=== PATIENT | female | born 1950 | race Caucasian/White ===

== ENCOUNTER → 2019-02-20 17:56 | Outpatient (CLI) | payer MEDICARE, SELFPAY | PROVIDERS: Visit Provider Physician Assistant | DX: N30.00 Acute cystitis without hematuria (principal) | CPT/HCPCS: 87077; 87086; 87186 ==

== ENCOUNTER → 2019-03-04 13:50 | Outpatient (CLI) | payer MEDICARE, SELFPAY | PROVIDERS: Visit Provider Nurse Practitioner | DX: R30.0 Dysuria (principal) | CPT/HCPCS: 87086 ==

== ENCOUNTER → 2022-01-26 11:08 | Outpatient (CLI) | payer MEDICARE, SELFPAY | PROVIDERS: Visit Provider Registered Nurse | DX: N39.0 Urinary tract infection, site not specified (principal) | CPT/HCPCS: 87077; 87086 ==

== ENCOUNTER → 2023-10-24 15:51 | Outpatient (CLI) | payer MEDICARE, SELFPAY ==
[2023-10-24 16:51] LABS: Influenza A - CEPHEID Flu A NEGATIVE (NEGATIVE); Influenza B - CEPHEID Flu B NEGATIVE (NEGATIVE); Respiratory Syncytial Virus Negative (Negative)
[2023-10-24 17:02] LABS: COVID-19 CEPHEID 4-PLEX PCR Negative (Negative)
== END ==
PROVIDERS: Visit Provider Nurse Practitioner Family
DX: R05.1 Acute cough (principal); J02.9 Acute pharyngitis, unspecified
CPT/HCPCS: 0241U; 87070

== ENCOUNTER → 2023-10-24 16:15 | Outpatient (CLI) | payer MEDICARE, SELFPAY ==
--- NOTE | 2023-10-24 16:17 | DI.RAD.S_ITS ---
PROCEDURE: XR CHEST 2V INDICATIONS: Cough TECHNIQUE: 2 views of the chest were acquired. COMPARISON: None. FINDINGS: Surgical changes and devices: None. Lungs and pleura: Lungs are clear. No pleural effusions or pneumothorax. Mediastinum: Mediastinal contours are normal. Heart size is normal. Bones and chest wall: No suspicious bony abnormalities. Soft tissues appear unremarkable. IMPRESSION: No acute cardiopulmonary abnormality is seen. No focal consolidation. Dictated by: Liam Sánchez M.D. on 10/25/2023 at 11:28 Approved by: Liam Sánchez M.D. on 10/25/2023 at 11:29
== END ==
PROVIDERS: Referring Provider Nurse Practitioner Family; Visit Provider Nurse Practitioner Family
DX: J02.9 Acute pharyngitis, unspecified (principal); R05.1 Acute cough
CPT/HCPCS: 0241U; 71046; 87070; 87147

== ENCOUNTER 2023-10-30 13:51 | Emergency (ER) | payer MEDICARE, SELFPAY ==
[2023-10-30 13:55] VITALS: BP 123/68; PULSE 70; RESP 18; TEMP 37; O2SAT 97; BMI 22.8
--- NOTE | 2023-10-30 14:17 | ED.URI ---
HPI - URI/Sore Throat <Manoj Pascal PA-C - Last Filed: 10/30/23 16:02> General Chief Complaint: Upper Respiratory Symptoms Stated Complaint: Coughing, chest congestion Time Seen by Provider: 10/30/23 14:14 Source: patient Mode of arrival: Ambulatory History of Present Illness HPI Narrative: This is a 73-year-old female presents to the emergency department due to a continued cough for the last 2 weeks. She states that she was seen in [facility] or C received a prescription for azithromycin. She was then seen in the walk-in clinic about a week ago and given a prescription for Keflex after having any throat culture come back positive. She reports significant cough, denies any shortness of breath, chest pain, fevers, or any other concerning signs or symptoms. Related Data Home Medications Medication Instructions Recorded Confirmed alprazolam PO 02/20/19 10/24/23 cholecalciferol (vitamin D3) 25 1,000 unit PO DAILY 02/20/19 10/24/23 mcg (1,000 unit) capsule levothyroxine 150 mcg capsule 150 mcg PO DAILY 02/20/19 10/24/23 spironolactone 100 mg tablet 150 mg PO QAM 02/20/19 10/24/23 alprazolam 0.5 mg tablet mg PO 10/24/23 10/24/23 bupropion HCl 150 mg 24 hr tablet, 150 mg PO QAM 10/24/23 10/24/23 extended release erythromycin 5 mg/gram (0.5 %) eye EYE-BOTH 10/24/23 10/24/23 ointment estradiol 0.1 mg/24 hr semiweekly 1 patch transdermal 2XW 10/24/23 10/24/23 transdermal patch hydrochlorothiazide 25 mg tablet 25 mg PO DAILY 10/24/23 10/24/23 levothyroxine 125 mcg tablet 125 mcg PO DAILY 10/24/23 10/24/23 mirabegron 50 mg tablet,extended 50 mg PO DAILY 10/24/23 10/24/23 release 24 hr (Myrbetriq) sertraline 100 mg tablet mg PO 10/24/23 10/24/23 sertraline 25 mg tablet 25 mg PO DAILY 10/24/23 10/24/23 tretinoin 0.05 % topical cream 1 applic topical ONCE PM 10/24/23 10/24/23 Previous Rx's Medication Instructions Recorded benzonatate 200 mg capsule 200 mg PO BID PRN cough #28 caps 10/24/23 cephalexin 500 mg capsule 500 mg PO BID 10 days #20 caps 10/27/23 Allergies Allergy/AdvReac Type Severity Reaction Status Date / Time Latex, Natural Rubber Allergy Intermediate Rash Verified 10/30/23 14:01 Penicillins Allergy Intermediate hives Verified 10/30/23 14:01 Sulfa (Sulfonamide Allergy Intermediate hives. Verified 10/30/23 14:01 Antibiotics) Review of Systems <Manoj Pascal PA-C - Last Filed: 10/30/23 16:02> Review of Systems Narrative: GENERAL: Denies chills, fatigue, malaise, fever, sweats. HEENT: Denies sinus pain, ear pain, sore throat, difficulty swallowing, dizziness. RESPIRATORY: Reports cough cough, denies wheezing, hemoptysis, sputum. CARDIOVASCULAR: Denies chest pain, palpitations, orthopnea, edema, GASTROINTESTINAL: Denies nausea, vomiting, abdominal pain, diarrhea, constipation, melena. : Denies dysuria, frequency, incontinence, hematuria, urinary retention. MUSCULOSKELETAL: denies weakness, joint pain, or bony pain SKIN: Denies rash, skin lesions, or other NEUROLOGIC: Denies weakness, headache, numbness, change in speech, confusion, seizures, incoordination. PSYCHIATRIC: No concerning psychosocial issues. 12 point review of systems is negative except for those stated above Patient History <MARYANA Elizabeth Last Filed: 10/30/23 16:02> Social History Smoking Status: Never smoker Smoking Status: Never smoker alcohol intake frequency: holidays/special occasions only Substance Use Type: does not use Exam <Manoj Pascal PA-C - Last Filed: 10/30/23 16:02> Narrative Exam Narrative: GENERAL: Well-developed patient, in mild distress. HEAD: Atraumatic. Normocephalic. EYES: Pupils equal round and reactive. Extraocular motions intact. No scleral icterus. No injection or drainage. ENT: Nose without bleeding, purulent drainage. Throat without erythema, tonsillar hypertrophy or exudate. Airway patent. NECK: Trachea midline. Non tender EXTREMITIES: No edema or joint tenderness. NEURO: AOx3. SKIN: No rash or erythema of visible areas CARDIOVASCULAR: Regular rate and rhythm without murmurs, gallops, or rubs. RESPIRATORY: Coarse breath sounds bilaterally BACK: Nontender without deformity or crepitance. No flank tenderness. Initial Vital Signs Initial Vital Signs: Vital Signs Temperature 98.6 F 10/30/23 13:55 Pulse Rate 70 10/30/23 13:55 Respiratory Rate 18 10/30/23 13:55 Blood Pressure 123/68 10/30/23 13:55 Pulse Oximetry 97 10/30/23 13:55 Oxygen Delivery Method Room Air 10/30/23 13:55 <Maricruz Ortega MD - Last Filed: 10/30/23 16:44> Initial Vital Signs Initial Vital Signs: Vital Signs Temperature 98.6 F 10/30/23 13:55 Pulse Rate 70 10/30/23 13:55 Respiratory Rate 18 10/30/23 13:55 Blood Pressure 123/68 10/30/23 13:55 Pulse Oximetry 97 10/30/23 13:55 Oxygen Delivery Method Room Air 10/30/23 13:55 Course <Manoj Pascal PA-C - Last Filed: 10/30/23 16:02> Orders Ordered: ED Orders 10/30/23 14:33 CXR [XR chest 2V] Stat 10/30/23 14:38 Respiratory Panel (Film Array) Stat Vital Signs Vital signs: Vital Signs - 8 hr 10/30/23 13:55 10/30/23 16:10 Temperature 98.6 F Pulse Rate 70 66 Respiratory Rate 18 20 Blood Pressure 123/68 125/62 Pulse Oximetry 97 96 Oxygen Delivery Method Room Air Room Air <Maricruz Ortega MD - Last Filed: 10/30/23 16:44> Orders Ordered: ED Orders 10/30/23 14:33 CXR [XR chest 2V] Stat 10/30/23 14:38 Respiratory Panel (Film Array) Stat Vital Signs Vital signs: Vital Signs - 8 hr 10/30/23 13:55 10/30/23 16:10 Temperature 98.6 F Pulse Rate 70 66 Respiratory Rate 18 20 Blood Pressure 123/68 125/62 Pulse Oximetry 97 96 Oxygen Delivery Method Room Air Room Air MDM - URI/Sore Throat <MARYANA Elizabeth Last Filed: 10/30/23 16:02> Lab Data Labs: Lab Results 10/30/23 Range/Units 14:38 Chlamy pneumoniae PCR Not detected (Not Detect) Adenovirus (PCR) Not detected (Not Detect) B.parapertussis DNA PCR Not detected (Not Detecte) Coronavirus OC43 (PCR) Not detected (Not Detect) Coronavirus HKU1 (PCR) Not detected (Not Detect) Coronavirus 229E (PCR) Not detected (Not Detect) SARS-CoV-2 (PCR) Not detected (Not Detecte) Coronavirus NL63 (PCR) Not detected (Not Detect) Human Metapneumovir PCR Not detected (Not Detect) Influenza Type A (PCR) Not detected (Not Detect) Influenza Type B (PCR) Not detected (Not Detect) M. pneumoniae (PCR) Not detected (Not Detect) Parainfluenza 1 (PCR) Not detected (Not Detect) Parainfluenza 2 (PCR) Not detected (Not Detect) Parainfluenza 3 (PCR) Detected H (Not Detect) Parainfluenza 4 (PCR) Not detected (Not Detect) RSV (PCR) Not detected (Not Detect) Entero/Rhino (PCR) Not detected (Not Detect) Imaging Data Chest x-ray: Radiologist's Impression: [address] [address] XRay Report Signed Patient: Bella Cleary MR#: [id number] : 1950 Acct:[id number] Age/Sex: 73 / F Date of Service: 10/30/23 Loc: ED Accession Number: [id number] Procedure: XR chest 2V Ordering Provider: Manoj Pascal P.A-C PROCEDURE: XR CHEST 2V INDICATIONS: Cough and SOB TECHNIQUE: 2 views of the chest were acquired. COMPARISON: [facility], , XR CHEST 2V, 10/24/2023, 16:23. FINDINGS: Surgical changes and devices: None. Lungs and pleura: Lungs are clear. No pleural effusions or pneumothorax. Mediastinum: Mediastinal contours are normal. Heart size is normal. Bones and chest wall: No suspicious bony abnormalities. Soft tissues appear unremarkable. IMPRESSION: No acute cardiopulmonary abnormality is seen. Dictated by: Clyde Correia M.D. on 10/30/2023 at 15:22 Approved by: Clyde Correia M.D. on 10/30/2023 at 15:22 MDM Narrative Medical decision making narrative: ED course: This is a 73-year-old female presents to clinic due to continued cough. She was been prescribed a prescription for azithromycin as well as Keflex last couple of weeks. Chest x-ray showed no evidence of pneumonia. Respiratory panel came back positive for parainfluenza. Recommended supportive care. CC: Cough Complicating co-morbidities: None Data collected from: Previous notes Medical records reviewed: Patient was seen at the walk-in clinic 6 days ago due to cough congestion fatigue and myalgia. Strep testing was negative. Chest x-ray taken at that time was negative. Throat culture was ordered which showed growth for strep group C patient was prescribed Keflex. Differential considered, but not limited to: Bacterial sinusitis, viral sinusitis, pneumonia Exam documented above, pertinent findings include: Coarse breath sounds bilaterally Lab Test results independently reviewed as above. Pertinent findings: Respiratory panel came back positive for parainfluenza Imaging studies independently reviewed: Chest x-ray showed no evidence of pneumonia Scores Used: None MIPS Elements: None Consultations: None Treatments: None Re-evaluations: None Discussion: Discussed plan with the patient was comfortable with the plan Diagnosis: Parainfluenza Disposition: see below, along with detailed discharge instructions that have been reviewed with patient as well as indications for ED re-evaluation and additional outpatient follow up <Maricruz Ortega MD - Last Filed: 10/30/23 16:44> Lab Data Labs: Lab Results 10/30/23 Range/Units 14:38 Chlamy pneumoniae PCR Not detected (Not Detect) Adenovirus (PCR) Not detected (Not Detect) B.parapertussis DNA PCR Not detected (Not Detecte) Coronavirus OC43 (PCR) Not detected (Not Detect) Coronavirus HKU1 (PCR) Not detected (Not Detect) Coronavirus 229E (PCR) Not detected (Not Detect) SARS-CoV-2 (PCR) Not detected (Not Detecte) Coronavirus NL63 (PCR) Not detected (Not Detect) Human Metapneumovir PCR Not detected (Not Detect) Influenza Type A (PCR) Not detected (Not Detect) Influenza Type B (PCR) Not detected (Not Detect) M. pneumoniae (PCR) Not detected (Not Detect) Parainfluenza 1 (PCR) Not detected (Not Detect) Parainfluenza 2 (PCR) Not detected (Not Detect) Parainfluenza 3 (PCR) Detected H (Not Detect) Parainfluenza 4 (PCR) Not detected (Not Detect) RSV (PCR) Not detected (Not Detect) Entero/Rhino (PCR) Not detected (Not Detect) Discharge Plan Departure Patient Disposition: Home Clinical Impression: Hx of parainfluenza Activity Restrictions/Additional Instructions: Thank you for coming to the [facility] Emergency Department today. As we discussed your chest x-ray showed no evidence of pneumonia but your testing did come back positive for parainfluenza. This is viral in nature and should improve over time. I recommend [id number] Mucinex to help with the cough. Please return to the emergency department if you develop any significant chest pain, shortness of breath, or any other concerning signs or symptoms. I hope you feel better soon. Please follow up with your primary care provider within a week if your symptoms continue. If you do not have a primary care provider please contact the [facility] Resource line at [phone]. They will ask some questions about your medical history and help you get set up with a provider in the community. Prescriptions: No Action spironolactone 100 mg tablet 150 mg PO QAM levothyroxine 150 mcg capsule 150 mcg PO DAILY alprazolam PO cholecalciferol (vitamin D3) 1,000 unit capsule 1,000 unit PO DAILY bupropion HCl 150 mg tablet extended release 24 hr 150 mg PO QAM mirabegron [Myrbetriq] 50 mg tablet extended release 24 hr 50 mg PO DAILY sertraline 100 mg tablet PO hydrochlorothiazide 25 mg tablet 25 mg PO DAILY levothyroxine 125 mcg tablet 125 mcg PO DAILY estradiol 0.1 mg/24 hr patch semiweekly 1 patch transdermal 2XW alprazolam 0.5 mg tablet PO sertraline 25 mg tablet 25 mg PO DAILY tretinoin 0.05 % cream 1 applic topical ONCE PM erythromycin 5 mg/gram (0.5 %) ointment EYE-BOTH benzonatate 200 mg capsule 200 mg PO BID PRN (Reason: cough) Qty: 28 0RF cephalexin 500 mg capsule 500 mg PO BID 10 Days Qty: 20 0RF Referrals: Miscellaneous,Doctor, MD [Primary Care Provider] - Stand Alone Forms: Patient Portal/API ED Sign-out <Maricruz Ortega MD - Last Filed: 10/30/23 16:44> Cosign ED Attending Cosignature Attestation: I did not see this patient. I was available all times for consultation.
--- NOTE | 2023-10-30 14:20 | PC.NURSE ---
Walking spo2 >95%.
--- NOTE | 2023-10-30 14:33 | DI.RAD.S_ITS ---
PROCEDURE: XR CHEST 2V INDICATIONS: Cough and SOB TECHNIQUE: 2 views of the chest were acquired. COMPARISON: [facility], CR, XR CHEST 2V, 10/24/2023, 16:23. FINDINGS: Surgical changes and devices: None. Lungs and pleura: Lungs are clear. No pleural effusions or pneumothorax. Mediastinum: Mediastinal contours are normal. Heart size is normal. Bones and chest wall: No suspicious bony abnormalities. Soft tissues appear unremarkable. IMPRESSION: No acute cardiopulmonary abnormality is seen. Dictated by: Clyde Correia M.D. on 10/30/2023 at 15:22 Approved by: Clyde Correia M.D. on 10/30/2023 at 15:22
[2023-10-30 15:41] LABS: Adenovirus Not Detected (Not Detect); B. parapertussis Not Detected (Not Detecte); Bordetella pertussis Not Detected (Not Detect); Chlamydophila pneumoniae Not Detected (Not Detect); Coronavirus 229E Not Detected (Not Detect); Coronavirus HKU1 Not Detected (Not Detect); Coronavirus NL 63 Not Detected (Not Detect); Coronavirus OC43 Not Detected (Not Detect); Human Metapneumovirus Not Detected (Not Detect); Human Rhinovirus/Enterovirus Not Detected (Not Detect); Influenza A Not Detected (Not Detect); Influenza B Not Detected (Not Detect); Mycoplasma pneumoniae Not Detected (Not Detect); Parainfluenza Virus 1 Not Detected (Not Detect); Parainfluenza Virus 2 Not Detected (Not Detect); Parainfluenza Virus 3 Detected (Not Detect); Parainfluenza Virus 4 Not Detected (Not Detect); Respiratory Syncytial Virus Not Detected (Not Detect); SARS- CoV-2 Not Detected (Not Detecte)
[2023-10-30 16:10] VITALS: BP 125/62; PULSE 66; RESP 20; O2SAT 96
== END 2023-10-30 16:13 | disposition home or self-care (01) ==
PROVIDERS: Emergency Provider Physician Assistant Medical
DX: B34.8 Other viral infections of unspecified site (principal)
CPT/HCPCS: 71046; 87633; 99281; 99283

== ENCOUNTER 2024-04-01 09:03 | Emergency (ER) | payer MEDICARE, SELFPAY ==
[2024-04-01] VITALS (34 sets, daily range): BP systolic 94–117; BP diastolic 48–73; PULSE 54–60; RESP 10–35; TEMP 36.9; O2SAT 94–100; BMI 250.8
--- NOTE | 2024-04-01 09:18 | DI.CT.S_ITS ---
PROCEDURE: CT CERVICAL SPINE WO CON INDICATIONS: fall on thinners TECHNIQUE: Noncontrast 3 mm thick sections acquired from the skull base to the T4 level. Sagittal and coronal reformats were then constructed. For radiation dose reduction, the following was used: automated exposure control, adjustment of mA and/or kV according to patient size. COMPARISON: None. FINDINGS: Image quality: Excellent. Bones: No fractures or dislocations. Multilevel degenerative changes of the cervical spine. Straightening of the normal cervical lordosis. Grade 1 anterolisthesis of C3 on C4 is likely degenerative in etiology. Visualized superior ribs are intact. Soft tissues: Prevertebral soft tissues are normal in thickness. No paravertebral hematomas. No apical pneumothoraces. IMPRESSION: No displaced fracture or traumatic subluxation. Dictated by: Scotty Cano M.D. on 04/01/2024 at 9:44 Approved by: Scotty Cano M.D. on 04/01/2024 at 9:46
--- NOTE | 2024-04-01 09:18 | DI.CT.S_ITS ---
PROCEDURE: CT HEAD/BRAIN WO CON INDICATIONS: fall on thinners TECHNIQUE: Noncontrast 4.5 mm thick angled axial sections acquired from the foramen magnum to the vertex, with coronal and sagittal reformats. For radiation dose reduction, the following was used: automated exposure control, adjustment of mA and/or kV according to patient size. COMPARISON: None. FINDINGS: Image quality: Diagnostic. CSF spaces: Basal cisterns are patent. No extra-axial fluid collections. The ventricles are symmetric in size and shape. Brain: No intracranial bleeds. Rounded calcification arising from the posterior falx on the right measuring approximately 1.1 x 0.9 cm. There is cerebral volume loss for age, with resultant ventricular and sulcal prominence. There are periventricular and deep white matter chronic small vessel ischemic changes. There is intracranial internal carotid artery atherosclerosis. Skull and face: Small posterior scalp hematoma without underlying fracture. Calvarium and visualized facial bones appear intact, without suspicious lesions. Bilateral lens replacements. Sinuses: Visualized sinuses and mastoids are clear. IMPRESSION: No acute intracranial pathology. Rounded calcification arising from the posterior falx on the right measuring 1.1 cm, may represent a small meningioma. Dictated by: Scotty Cano M.D. on 04/01/2024 at 9:40 Approved by: Scotty Cano M.D. on 04/01/2024 at 9:44
--- NOTE | 2024-04-01 09:30 | DI.RAD.S_ITS ---
PROCEDURE: XR CHEST 1V INDICATIONS: chest pain TECHNIQUE: One view of the chest was acquired. COMPARISON: [facility], CR, XR CHEST 2V, 10/30/2023, 14:52. [facility], CR, XR CHEST 2V, 10/24/2023, 16:23. FINDINGS: Surgical changes and devices: Cholecystectomy clips. Lungs and pleura: Lungs are clear. No pleural effusions or pneumothorax. Mediastinum: Mediastinal contours appear normal. Heart size is normal. Bones and chest wall: No suspicious bony lesions. Overlying soft tissues appear unremarkable. IMPRESSION: No acute cardiopulmonary abnormality is seen. Dictated by: Ronak Spence M.D. on 04/01/2024 at 9:56 Approved by: Ronak Spence M.D. on 04/01/2024 at 9:57
--- NOTE | 2024-04-01 09:58 | EKG_ITS ---
[address] [address] Test Date: 2024-04-01 Pat Name: Bella Cleary Department: [facility] Room: Gender: Female Rn Internal Medicine: JOHN : 1950 Requested By: Order Number: [id number] Reading MD: Lázaro Murray Measurements Intervals [place] Rate: 55 P: 90 MO: 248 QRS: 44 QRSD: 78 T: 70 QT: 456 QTc: 436 Interpretive Statements Sinus bradycardia with 1st degree AV block Electronically Signed On 04-02-2024 19:03:33 PST by Lázaro Murray
[2024-04-01 10:22] LABS: Bacteria Urine None Seen; Culture Indicated Urine Cult Not Indicated; RBC Urine 5-10/HPF (0-5/HPF); Squamous Epithelial Cell Urine 0-1 /HPF (0-5/HPF); Urine Volume 10mL (spun); WBC Urine 0-1/HPF (0-5/HPF)
[2024-04-01 10:26] LABS: Add Manual Diff / Slide Review NO; Basophils Absolute Auto 0 /uL (0-100); Basophils Percent Auto 0.8 % (0-2); Eosinophils Absolute Auto 300 /uL (0-450); Eosinophils Percent Auto 5.5 % (2-4); Hematocrit 38.4 % (36-46); Hemoglobin 12.8 g/dL (12.0-16.0); Lymphocytes Absolute Auto 1500 /uL (1100-4500); Mean Corpuscular HGB Conc 33.3 % (30-36); Mean Corpuscular Volume 90.2 fL (80-100); Monocytes Absolute Auto 500 /uL (0-900); Monocytes Percent Auto 8.3 % (3-14); Neutrophils Absolute Auto 3500 /uL (1500-7000); Neutrophils Percent Auto 59.4 % (50-75); Platelet Count 185 X10^3/uL (150-400); Red Blood Cell Count 4.26 X10^6/uL (4.0-5.2); Red Cell Distribution Width 14.3 % (11.6-14.8); White Blood Cell Count 5.9 X10^3/uL (4.5-11.0)
[2024-04-01 10:30] LABS: INR 1.1 (0.9-1.3); Prothrombin Time 12.7 SECONDS (9.4-12.5)
[2024-04-01 10:33] LABS: PTT Partial Thromboplastin Tim 44 SECONDS (25.1-36.5)
[2024-04-01 10:35] LABS: Alanine Aminotransferase 92 IU/L (<35); Albumin 4.2 g/dL (3.5-5.0); Albumin Globulin Ratio 1.4 (1.0-2.8); Alkaline Phosphatase 69 U/L (38-126); Aspartate Aminotransferase 43 IU/L (14-36); BUN Creatinine Ratio 26.5 (6-22); Bilirubin Total 0.9 mg/dL (0.2-1.3); Blood Urea Nitrogen 31 mg/dL (7-17); Calcium 9.3 mg/dL (8.4-10.2); Carbon Dioxide 28 mmol/L (22-32); Chloride 103 mmol/L (98-107); Creatine Kinase 83 U/L (30-135); Estimated Glomerular Filt Rate 49 mL/min (>60); Globulin 3.1 g/dL (1.7-4.1); Glucose 107 mg/dL (80-110); HEMOLYSIS < 15 (0-50); Lipase 58 U/L (23-300); Magnesium 2.2 mg/dL (1.6-2.3); Potassium 4.3 mmol/L (3.4-5.1); Sodium 137 mmol/L (137-145); Total Protein 7.3 g/dL (6.3-8.2)
[2024-04-01 10:47] LABS: NT-proBNP (BNP-Adult 18+) 1110 pg/mL (<125); Troponin I < 0.012 ng/mL (0.01-0.034)
--- NOTE | 2024-04-01 12:04 | ED_ITS ---
HPI - Fall General Chief Complaint: Trauma Stated Complaint: Fall, blood thinners Time Seen by Provider: 04/01/24 11:58 Source: patient, RN notes reviewed and old records reviewed Limitations: no limitations History of Present Illness HPI Narrative: 73-year-old recent diagnosis of atrial fibrillation on Eliquis and beta nohemi who presents with complaint of fall and head injury. Patient states she was walking down her driveway which is quite steep to take her dog for a walk she had a little bit dizzy went to stop her dog kept and pulled on her with the leash going which threw her off balance and she fell backwards hitting her head. She states she heard a crack when she hit the ground, she states no loss of consciousness. Had quite a bit of headache initially she states it feels better but still little bit uncomfortable. Slightly foggy. Describes little bit of right-sided neck pain but normal range of motion. She denies any dizziness or lightheadedness. Denies any chest pain or shortness of breath. No numbness tingling or weakness. No back pain. No issues with bowel movements or urination that are new. She is some chronic urinary incontinence when she takes medication for. Denies any issues with gait or movement afterwards. She is unsure of her tetanus status. Related Data Home Medications Medication Instructions Recorded Confirmed alprazolam PO 02/20/19 10/24/23 cholecalciferol (vitamin D3) 25 1,000 unit PO DAILY 02/20/19 10/24/23 mcg (1,000 unit) capsule levothyroxine 150 mcg capsule 150 mcg PO DAILY 02/20/19 10/24/23 spironolactone 100 mg tablet 150 mg PO QAM 02/20/19 10/24/23 alprazolam 0.5 mg tablet mg PO 10/24/23 10/24/23 bupropion HCl 150 mg 24 hr tablet, 150 mg PO QAM 10/24/23 10/24/23 extended release erythromycin 5 mg/gram (0.5 %) eye EYE-BOTH 10/24/23 10/24/23 ointment estradiol 0.1 mg/24 hr semiweekly 1 patch transdermal 2XW 10/24/23 10/24/23 transdermal patch hydrochlorothiazide 25 mg tablet 25 mg PO DAILY 10/24/23 10/24/23 levothyroxine 125 mcg tablet 125 mcg PO DAILY 10/24/23 10/24/23 mirabegron 50 mg tablet,extended 50 mg PO DAILY 10/24/23 10/24/23 release 24 hr (Myrbetriq) sertraline 100 mg tablet mg PO 10/24/23 10/24/23 sertraline 25 mg tablet 25 mg PO DAILY 10/24/23 10/24/23 tretinoin 0.05 % topical cream 1 applic topical ONCE PM 10/24/23 10/24/23 Previous Rx's Medication Instructions Recorded benzonatate 200 mg capsule 200 mg PO BID PRN cough #28 caps 10/24/23 Allergies Allergy/AdvReac Type Severity Reaction Status Date / Time Latex, Natural Rubber Allergy Intermediate Rash Verified 10/30/23 14:01 Penicillins Allergy Intermediate hives Verified 10/30/23 14:01 Sulfa (Sulfonamide Allergy Intermediate hives. Verified 10/30/23 14:01 Antibiotics) Review of Systems Review of Systems ROS Unobtainable: All systems reviewed & are unremarkable except as noted in HPI and below Patient History Social History Smoking Status: Never smoker Smoking Status: Never smoker alcohol intake frequency: holidays/special occasions only Substance Use Type: does not use Exam Narrative Exam Narrative: GEN: Patient appears in mild distress. HEAD: Patient has a 1.2 cm vertical laceration on the posterior scalp, no raccoon/Alicia sign. NECK: Nontender, painless range of motion, trachea midline Negative Nexus criteria, negative line tenderness, distracting injury, altered mental status, neuro deficit, recent EtOH. EYES: PERRLA, EOMI ENT: External inspection normal, trachea is midline, normal ears, Nares are clear, no septal hematoma, no dental or oral injury, airway is normal and with normal occlusion, No bony tenderness RESP: Chest is nontender and has symmetric movement, no ecchymosis, breath sounds are normal no crackles, wheezes or rales CVS: Heart sounds are normal, no murmur noted, No JVD. ABG/GI: Nontender, soft, normal bowel sounds, no distention, no organomegaly, pelvic rock is negative NEURO: Oriented AOx3, neuro is grossly intact, sensation and motor is normal all 4 extremities moving, cranial nerves II through XII are intact, GCS is 15 PSYCH: Normal mood and affect SKIN: Intact, warm and dry, no crepitus and without decubitus BACK: No CVA tenderness, no vertebral tenderness, no step-off's, no crepitus EXT: Atraumatic, hips are nontender, no pedal edema, normal color and temperature, normal range of motion of extremities with normal tendon exam, 2+ pulses in all four extremities Initial Vital Signs Initial Vital Signs: Vital Signs Temperature 98.5 F 04/01/24 09:10 Pulse Rate 60 04/01/24 09:10 Respiratory Rate 17 04/01/24 09:10 Blood Pressure 117/68 04/01/24 09:10 Pulse Oximetry 98 04/01/24 09:10 Oxygen Delivery Method Room Air 04/01/24 09:10 Procedures Laceration Repair Laceration 1: Site: scalp Size (cm): 1.2 Description: linear Depth: simple, single layer Local Anesthetic: other anesthetic (Topical prilocaine) Pre-repair: wound explored, irrigated extensively and deep structures intact Skin layer closed with: jennyfer (#4) Course Orders Ordered: Discontinued Medications Aspirin (Aspirin 81 Mg Chew Tab) 324 mg PO NOW ONE Stop: 04/01/24 09:31 Last Admin: 04/01/24 12:08 Dose: Not Given Documented By: ED Diphtheria/Tetanus/Acell Pertussis (Tet,Diph,Pertuss(Acell),Vac/Pf 0.5 Ml Syringe) 0.5 ml IM .ONCE ONE Stop: 04/01/24 14:00 Last Admin: 04/01/24 14:09 Dose: 0.5 ml Documented By: ED(2) Lidocaine/Prilocaine (Lidocaine/Prilocaine 5 Gm) 5 gm TOP NOW ONE Stop: 04/01/24 12:47 Last Admin: 04/01/24 13:19 Dose: 5 gm Documented By: USHA Vital Signs Vital signs: Vital Signs - 8 hr 04/01/24 11:40 04/01/24 11:50 04/01/24 12:00 Pulse Rate 54 L 55 L 58 L Respiratory Rate 12 19 30 H Blood Pressure Pulse Oximetry 95 95 97 04/01/24 12:01 04/01/24 12:01 04/01/24 12:10 Pulse Rate 56 L 56 L Respiratory Rate 23 13 Blood Pressure 115/58 L Pulse Oximetry 97 98 04/01/24 12:20 04/01/24 12:30 04/01/24 12:30 Pulse Rate 55 L 54 L Respiratory Rate 10 L 21 Blood Pressure 104/53 L Pulse Oximetry 97 97 04/01/24 12:40 04/01/24 12:50 04/01/24 13:00 Pulse Rate 58 L 55 L 57 L Respiratory Rate 33 H 14 23 Blood Pressure Pulse Oximetry 98 99 04/01/24 13:01 04/01/24 13:01 04/01/24 13:10 Pulse Rate 56 L 58 L Respiratory Rate 14 30 H Blood Pressure 94/51 L Pulse Oximetry 99 98 04/01/24 13:20 04/01/24 13:30 04/01/24 13:31 Pulse Rate 59 L 57 L 57 L Respiratory Rate 30 H 18 21 Blood Pressure Pulse Oximetry 96 96 94 04/01/24 13:31 04/01/24 13:40 04/01/24 13:50 Pulse Rate 56 L 56 L Respiratory Rate 24 14 Blood Pressure 103/73 Pulse Oximetry 95 95 04/01/24 14:00 04/01/24 14:00 Pulse Rate 58 L Respiratory Rate 20 Blood Pressure 104/60 Pulse Oximetry 100 MDM - Fall Lab Data 04/01/24 10:14 04/01/24 10:14 Labs: Lab Results 04/01/24 04/01/24 Range/Units 10:04 10:14 WBC 5.9 (4.5-11.0) X10^3/uL RBC 4.26 (4.0-5.2) X10^6/uL Hgb 12.8 (12.0-16.0) g/dL Hct 38.4 (36-46) % MCV 90.2 (80-100) fL MCH 30.0 (26-34) PG MCHC 33.3 (30-36) % RDW 14.3 (11.6-14.8) % Plt Count 185 (150-400) X10^3/uL Neut % (Auto) 59.4 (50-75) % Lymph % (Auto) 26.0 (25-40) % [place] % (Auto) 8.3 (3-14) % Eos % (Auto) 5.5 H (2-4) % Baso % (Auto) 0.8 (0-2) % Neut # (Auto) 3500 (9711-3819) /uL Lymph # (Auto) 1500 (9706-2198) /uL [place] # (Auto) 500 (0-900) /uL Eos # (Auto) 300 (0-450) /uL Baso # (Auto) 0 (0-100) /uL PT 12.7 H (9.4-12.5) SECONDS INR 1.1 (0.9-1.3) APTT 44 H (25.1-36.5) SECONDS Sodium 137 (137-145) mmol/L Potassium 4.3 (3.4-5.1) mmol/L Chloride 103 (98-107) mmol/L Carbon Dioxide 28 (22-32) mmol/L BUN 31 H (7-17) mg/dL Creatinine 1.17 H (0.52-1.04) mg/dL Estimated GFR 49 L (>60) mL/min BUN/Creatinine Ratio 26.5 H (6-22) Glucose 107 (80-110) mg/dL Calcium 9.3 (8.4-10.2) mg/dL Magnesium 2.2 (1.6-2.3) mg/dL Total Bilirubin 0.9 (0.2-1.3) mg/dL AST 43 H (14-36) IU/L ALT 92 H (<35) IU/L Alkaline Phosphatase 69 (38-126) U/L Total Creatine Kinase 83 (30-135) U/L Troponin I < 0.012 (0.01-0.034) ng/mL NT-Pro-B Natriuret Pep 1110 H (<125) pg/mL Total Protein 7.3 (6.3-8.2) g/dL Albumin 4.2 (3.5-5.0) g/dL Globulin 3.1 (1.7-4.1) g/dL Albumin/Globulin Ratio 1.4 (1.0-2.8) Lipase 58 (23-300) U/L Urine RBC 5-10/hpf H (0-5/HPF) Urine WBC 0-1/hpf (0-5/HPF) Ur Squamous Epith Cells 0-1 /hpf (0-5/HPF) Urine Bacteria None seen (None) Ur Culture Indicated? Cult not indicated Vol Urine Centrifuged 10ml (spun) Urine Dip Bedside Urine Glucose Negative Bedside Urine Bilirubin - Negative Bedside Urine Ketone - Negative Urine Specific [place] 1.010 Bedside Urine Occult Blood ++ Bedside Urine pH 6.0 Bedside Urine Protein - Negative Bedside Urine Urobilinogen - Negative Bedside Urine Nitrite - Negative Bedside Urine Leukocytes - Negative Esterase Imaging Data Chest x-ray: Radiologist's Impression: Bella Cleary??73??F??1950 ? Allergy/Adv: Latex, Natural Rubber, Penicillins, Sulfa (Sulfonamide Antibiotics) (More??) Close Chest X-Ray (Signed) Ronak Spence - 04/01/[address] (Signed) Scotty Cano - 04/01/[address] (Signed) Cano,Scotty - 04/01/24 Chest X-Ray (Signed) Clyde Correia - 10/30/23 Chest X-Ray (Signed) PrincessLiam - 10/24/23 Launch?[place] [address] XRay Report Signed Patient: Bella Cleary MR#: [id number] : 1950 Acct:[id number] Age/Sex: 73 / F Date of Service: 04/01/24 Loc: ED Accession Number: [id number] Procedure: XR chest 1V Ordering Provider: Maricruz Castillo D.O. PROCEDURE: XR CHEST 1V INDICATIONS: chest pain TECHNIQUE: One view of the chest was acquired. COMPARISON: [facility], , XR CHEST 2V, 10/30/2023, 14:52. [facility], , XR CHEST 2V, 10/24/2023, 16:23. FINDINGS: Surgical changes and devices: Cholecystectomy clips. Lungs and pleura: Lungs are clear. No pleural effusions or pneumothorax. Mediastinum: Mediastinal contours appear normal. Heart size is normal. Bones and chest wall: No suspicious bony lesions. Overlying soft tissues appear unremarkable. IMPRESSION: No acute cardiopulmonary abnormality is seen. Dictated by: Ronak Spence M.D. on 04/01/2024 at 9:56 Approved by: Ronak Spence M.D. on 04/01/2024 at 9:57 CT scan - head: Radiologist's Impression: Bella Cleary??73??F??1950 ? Allergy/Adv: Latex, Natural Rubber, Penicillins, Sulfa (Sulfonamide Antibiotics) (More??) Close Chest X-Ray (Signed) Ronak Spence - 04/01/[address] (Signed) RachaelScotty - 04/01/[address] (Signed) RachaelScotty - 04/01/24 Chest X-Ray (Signed) Clyde Correia - 10/30/23 Chest X-Ray (Signed) SánchezLiam - 10/24/23 Launch?[place] [address] CT Scan Report Signed Patient: Bella Cleary MR#: [id number] : 1950 Acct:[id number] Age/Sex: 73 / F Date of Service: 04/01/24 Loc: ED Accession Number: [id number] Procedure: CT head/brain wo con Ordering Provider: Maricruz Castillo D.O. PROCEDURE: CT HEAD/BRAIN WO CON INDICATIONS: fall on thinners TECHNIQUE: Noncontrast 4.5 mm thick angled axial sections acquired from the foramen magnum to the vertex, with coronal and sagittal reformats. For radiation dose reduction, the following was used: automated exposure control, adjustment of mA and/or kV according to patient size. COMPARISON: None. FINDINGS: Image quality: Diagnostic. CSF spaces: Basal cisterns are patent. No extra-axial fluid collections. The ventricles are symmetric in size and shape. Brain: No intracranial bleeds. Rounded calcification arising from the posterior falx on the right measuring approximately 1.1 x 0.9 cm. There is cerebral volume loss for age, with resultant ventricular and sulcal prominence. There are periventricular and deep white matter chronic small vessel ischemic changes. There is intracranial internal carotid artery atherosclerosis. Skull and face: Small posterior scalp hematoma without underlying fracture. Calvarium and visualized facial bones appear intact, without suspicious lesions. Bilateral lens replacements. Sinuses: Visualized sinuses and mastoids are clear. IMPRESSION: No acute intracranial pathology. Rounded calcification arising from the posterior falx on the right measuring 1.1 cm, may represent a small meningioma. Dictated by: Scotty Cano M.D. on 04/01/2024 at 9:40 Approved by: Scotty Cano M.D. on 04/01/2024 at 9:44 CT - cervical spine: Radiologist's Impression: [address] [address] [address] Scan Report Signed Patient: Bella Cleary MR#: [id number] : 1950 Acct:[id number] Age/Sex: 73 / F Date of Service: 04/01/24 Loc: ED Accession Number: [id number] Procedure: CT cervical spine wo con Ordering Provider: Maricruz Castillo D.O. PROCEDURE: CT CERVICAL SPINE WO CON INDICATIONS: fall on thinners TECHNIQUE: Noncontrast 3 mm thick sections acquired from the skull base to the T4 level. Sagittal and coronal reformats were then constructed. For radiation dose reduction, the following was used: automated exposure control, adjustment of mA and/or kV according to patient size. COMPARISON: None. FINDINGS: Image quality: Excellent. Bones: No fractures or dislocations. Multilevel degenerative changes of the cervical spine. Straightening of the normal cervical lordosis. Grade 1 anterolisthesis of C3 on C4 is likely degenerative in etiology. Visualized superior ribs are intact. Soft tissues: Prevertebral soft tissues are normal in thickness. No paravertebral hematomas. No apical pneumothoraces. IMPRESSION: No displaced fracture or traumatic subluxation. Dictated by: Scotty Cano M.D. on 04/01/2024 at 9:44 Approved by: Scotty Cano M.D. on 04/01/2024 at 9:46 ECG Data Attestation: I personally reviewed and interpreted this ECG as follows: Interpretation: EKG shows sinus bradycardia, inverted T-wave in lead [address] elevation depression noted. MDM Narrative Medical decision making narrative: 73-year-old female presents after fall patient felt little bit dizzy stopped and then had a mechanical ground level fall when her dog pulled her forward and then she fell backwards. Patient states she did have a headache, she was feeling improved does have a small laceration of the posterior scalp in his anticoagulated on Eliquis. Patient is unsure if her tetanus is up-to-date she was checking her MyChart to check her status. Patient found that her tetanus was updated in 2017 last we will update today Labs show white count of 5.9 hemoglobin of 12 platelets of 185, creatinine is 1.17 BUN 31 sodium is 137 potassium 4.3 chloride of 103 CO2 of 28 glucose of 107 AST is 43 ALT is 92, troponins less than 0.012 with a BNP of 1110. No priors for comparison EKG shows sinus bradycardia Point of care urine is positive for blood, 5-10 RBCs 0-1 white cells 1 squamous no bacteria no nitrates or leuks. Head CT no acute intracranial pathology round calcification arising from posterior falx right measuring 1.1 cm may represent a small hemangioma CT cervical spine shows no acute fracture or traumatic subluxation does have grade 1 anterolisthesis of C3 on C4 likely degenerative in etiology. Chest x-ray shows no acute change Discussed with patient we will do topical prilocaine and had jennyfer placed. Reviewed all of her findings from today. Degenerative changes as well as head CT findings. Patient is otherwise well-appearing felt appropriate for discharge home. Reviewed findings with patient. Discussed return precautions. Discharge Plan Departure Patient Disposition: Home Clinical Impression: Laceration of scalp, Fall, Meningioma Activity Restrictions/Additional Instructions: Your imaging does show around a calcification from the posterior falx on the right measuring 1.1 cm may represent a small meningioma. These typically do not require any interventions. You do have some degenerative changes in your neck but no fractures or dislocations. Follow up in 7-10 days for staple removal primary care, urgent care or emergency department. Wound Care: Keep wound(s) clean and dry. Wash daily with soap and water only. Do not use over the counter products (alcohol or peroxide)on the wounds unless instructed by a physician. If wound condition worsens (increased/expanding redness, developing fluid blisters, or worsening pain), either contact your doctor for an urgent re- assessment , or return to the Emergency Department. Return if fever greater than 100.4 Fahrenheit, increased swelling, increasing pain or worsening symptoms such as increased discharge or spreading redness, severe headaches, new neck or back pain, numbness tingling or weakness, difficulty with ambulation, new chest pain or shortness of breath, persistent vomiting, sudden vision changes or other new or concerning changes. Prescriptions: No Action spironolactone 100 mg tablet 150 mg PO QAM levothyroxine 150 mcg capsule 150 mcg PO DAILY alprazolam PO cholecalciferol (vitamin D3) 1,000 unit capsule 1,000 unit PO DAILY bupropion HCl 150 mg tablet extended release 24 hr 150 mg PO QAM mirabegron [Myrbetriq] 50 mg tablet extended release 24 hr 50 mg PO DAILY sertraline 100 mg tablet PO hydrochlorothiazide 25 mg tablet 25 mg PO DAILY levothyroxine 125 mcg tablet 125 mcg PO DAILY estradiol 0.1 mg/24 hr patch semiweekly 1 patch transdermal 2XW alprazolam 0.5 mg tablet PO sertraline 25 mg tablet 25 mg PO DAILY tretinoin 0.05 % cream 1 applic topical ONCE PM erythromycin 5 mg/gram (0.5 %) ointment EYE-BOTH benzonatate 200 mg capsule 200 mg PO BID PRN (Reason: cough) Qty: 28 0RF Referrals: Miscellaneous,Doctor, MD [Primary Care Provider] - Stand Alone Forms: Patient Portal/API/Survey
[2024-04-01] MEDS: LIDOCAINE/PRILOCAINE 5 GM TOP (13:19)
[2024-04-01] MEDS: TET,DIPH,PERTUSS(ACELL),VAC/PF 0.5 ML SYRINGE IM (14:09)
== END 2024-04-01 14:16 | disposition home or self-care (01) ==
PROVIDERS: Emergency Provider Emergency Medicine
DX: S01.01XA Laceration without foreign body of scalp, initial encounter (principal); D18.01 Hemangioma of skin and subcutaneous tissue; R07.9 Chest pain, unspecified; R00.1 Bradycardia, unspecified; I44.0 Atrioventricular block, first degree; W18.30XA Fall on same level, unspecified, initial encounter; Z79.01 Long term (current) use of anticoagulants; Z23 Encounter for immunization
CPT/HCPCS: 12001; 36415; 70450; 71045; 72125; 80053; 81003; 81015; 82550; 83690; 83735; 83880; 84484; 85025; 85610; 85730; 90471; 93005; 99284; 90715

== ENCOUNTER → 2024-10-16 11:34 | Outpatient (CLI) | payer MEDICARE, SELFPAY | LOC: LAB 11:35 | PROVIDERS: Visit Provider Nurse Practitioner Family | DX: N30.01 Acute cystitis with hematuria (principal) | CPT/HCPCS: 87086 ==

== ENCOUNTER → 2025-05-02 13:52 | Outpatient (CLI) | payer MEDICARE, SELFPAY | PROVIDERS: Visit Provider Chiropractor | DX: R30.0 Dysuria (principal) | CPT/HCPCS: 87077; 87086; 87186 ==